=== PATIENT | female | born 1950 | race Caucasian/White ===

== ENCOUNTER 2017-11-05 09:04 | Emergency (ER) | payer OTHER, BC ==
--- NOTE | 2017-11-05 09:22 | PDOC ---
History of Present Illness - General Chief Complaint: Pain Stated Complaint: RIGHT LOWER QUADRANT Time Seen by Provider: 11/05/17 09:22 - History of Present Illness Initial Comments: 11/05/17 09:43 Chief complaint: Nausea and vomiting History of present illness: After eating at a restaurant last night, patient experienced chills and nausea, followed by repetitive vomiting of food, and then clear liquid. Last episode of vomiting was last night. Nausea has resolved. She initially had upper abdominal pain, but this has resolved as well. However, upon presentation to urgent care center today, she was examined, and the examining physician elicited significant right lower quadrant tenderness to palpation. The patient had been unaware of pain in this area before examination. Additional history reveals that the patient attended a wedding on Sunday night, and multiple other attendees developed gastrointestinal illness. Review of systems: Denies fever, recent URI symptoms, sore throat, cough, chest pain, shortness of breath, hematemesis, melena, bloody stool, vaginal bleeding or discharge, urinary tract symptoms. She denies abdominal pain unless vigorously palpated. Remainder of systems reviewed and found to be negative Past medical history: "Colitis" many years ago, seems to have resolved. Peptic ulcer disease, also many years ago, treated with "antibiotic cocktail" without further sequelae. No GI bleeding at the time. High blood pressure. Elevated cholesterol. Takes medication for these. Total abdominal hysterectomy for fibroids, no other abdominal surgeries. Multiple orthopedic surgeries knees and right wrist. Family history: Father of presumed MS at age 58, brother had MS at age 58, another brother with "tachycardia". Mother with ALS. No diabetes. No CVAs or other neurologic diseases. Social history: Patient is employed in healthcare finance, no smoking, excessive alcohol, or nonprescription drugs. Fully active and without disability Physical exam: Alert and oriented well-developed well-nourished no acute distress cheerful and cooperative Afebrile, vital signs normal No pallor or icterus. PERRLA, fundi benign, ENT clear Neck supple without bruit mass or nodes Lungs clear with full breath sounds throughout bilaterally CV regular without murmur rub or gallop pulses full and symmetric no JVD or edema Abdomen nondistended. Bowel sounds present and normal in character. Soft without mass or organomegaly. There is localized tenderness to palpation in the right lower quadrant. Tenderness is only elicited with deep palpation and there is involuntary guarding but no rebound. Extremities no CCE Skin clear, no rash, adequate turgor and wet mucous membranes Neurological intact gait stable and unimpaired Impression: Patient with likely viral gastroenteritis, appears improving now, but examination is significant for localized tenderness at McBurney's point with significant guarding upon deep palpation. Possible appendicitis. Plan: CBC chemistries and urinalysis. CT with contrast to visualize the appendix. IV fluids and antiemetics do not appear to be necessary of present 11/05/17 09:51 Past History - Past Medical History Allergies/Adverse Reactions: Allergies Allergy/AdvReac Type Severity Reaction Status Date / Time Penicillins Allergy Severe Difficulty Verified 11/05/17 09:18 Breathing Home Medications: Ambulatory Orders Atenolol [Tenormin -] 25 mg PO DAILY 11/05/17 Fenofibrate 160 mg PO DAILY 11/05/17 Hctz 25Mg/Triamterene [Dyazide 25/37.5 -] 0.5 cap PO HS 11/05/17 Lisinopril 20 mg PO DAILY 11/05/17 Omeprazole 40 mg PO DAILY 11/05/17 ED Treatment Course - LABORATORY CBC & Chemistry Diagram: 11/05/17 09:48 11/05/17 09:48 Medical Decision Making - Medical Decision Making 11/05/17 12:27 Labs show only a slightly low potassium. Supplementation was administered IV and the patient was instructed to increase potassium-rich foods in the diet and have her potassium rechecked in 1 week by her primary physician CT showed no evidence of serious intra-abdominal disease. Appendix was normal. There was a small nodule on the left adrenal, and as suggested by the radiologist, the patient was told to repeat imaging studies in 2-3 months to make sure there is no growth or change. She understands and agrees. Fully ambulatory in no significant pain or other distress upon discharge to follow-up as recommended *DC/Admit/Observation/Transfer Diagnosis at time of Disposition: Viral gastroenteritis - Discharge Dispostion Disposition: HOME Condition at time of disposition: Improved Admit: No - Referrals - Patient Instructions Printed Discharge Instructions: DI for Viral Gastroenteritis -- Adult Additional Instructions: Potassium was slightly low. Eat foods rich in potassium to buildup near stocks and heavier potassium rechecked by her primary physician in one week. CT scan showed no evidence of serious intra-abdominal disease. There was a small nodule directed that is most likely a noncancerous growth on the adrenal gland. However, to be certain the radiologist has suggested that you repeat radiological imaging in approximately 3 months to make sure it is not growing. Show CT scan report to your primary physician and have him arrange for appropriate follow-up. - Post Discharge Activity Forms/Work/School Notes: Back to Work
[2017-11-05 09:41] LABS: URINE APPEARANCE Clear; URINE BILIRUBIN 2+ (NEGATIVE); URINE GLUCOSE (UA) Negative (NEGATIVE); URINE KETONE Trace (NEGATIVE); URINE NITRITE Negative (NEGATIVE); URINE UROBILINOGEN 0.2 (0.2-1.0)
[2017-11-05 09:42] LABS: URINE BLOOD Trace-lysed (NEGATIVE); URINE COLOR YELLOW; URINE PROTEIN 3+ (NEGATIVE)
[2017-11-05 09:44] VITALS: BP 129/63; PULSE 65; TEMP 98.6; BMI 23.1
[2017-11-05] MEDS ORDERED: SODIUM CHLORIDE 0.9% 1000 ML INFUS.BAG IV ONE (10:04)
[2017-11-05 10:05] LABS: EOS % 0.3 % (0-4.5); HEMATOCRIT 41.2 % (32.4-45.2); HEMOGLOBIN 13.7 GM/dl (10.7-15.3); LYMPH % 5.8 % (8-40); MCHC 33.3 g/dl (32.0-36.0); MEAN CELL VOLUME 90.1 fl (80-96); MEAN PLT VOLUME 8.3 fl (7.5-11.1); MONO % 2.9 % (3.8-10.2); PLATELET COUNT 229 K/MM3 (134-434); RBC 4.57 M/mm3 (3.60-5.2); RDW 12.7 % (11.6-15.6); WHITE BLOOD COUNT 6.9 K/mm3 (4.0-10.8)
[2017-11-05 10:18] LABS: ALK PHOS 43 U/L (32-92); ANION GAP 8 (8-16); BILIRUBIN,TOTAL 0.8 mg/dl (0.2-1.0); BLOOD UREA NITROGEN 18 mg/dl (7-18); CALCIUM 9.4 mg/dl (8.4-10.2); CHLORIDE 102 mmol/L (98-107); CO2 26 mmol/L (22-28); GLUCOSE,RANDOM 94 mg/dl (74-106); LIPASE 20 U/L (22-51); POTASSIUM 3.3 mmol/L (3.5-5.1); SGOT/AST 26 U/L (10-42); SGPT/ALT 15 U/L (10-40); SODIUM 136 mmol/L (136-145); TOT PROT 6.3 g/dl (6.4-8.3)
[2017-11-05] MEDS ORDERED: KCL 10 MEQ IVPB 10 MEQ/100 ML INFUS.BAG IVPB SCH (10:45)
[2017-11-05] MEDS ORDERED: KCL 10 MEQ IVPB 10 MEQ/100 ML INFUS.BAG IVPB ONE (10:45)
[2017-11-05 11:18] LABS: TROPONIN I (DFP) < 0.03 ng/ml (0.03-0.50)
[2017-11-05 14:06] LABS: URINE BACTERIA FEW /hpf (NEGATIVE); URINE RBC 0-2 /hpf (0-3)
== END 2017-11-05 12:55 | disposition home or self-care (01) ==
LOC: FER 09:04
PROC: 3E0337Z Introduction of Electrolytic and Water Balance Substance into Peripheral Vein, Percutaneous Approach (ICD-10-PCS; principal; 2017-11-05)
PROC: 3E033GC Introduction of Other Therapeutic Substance into Peripheral Vein, Percutaneous Approach (ICD-10-PCS; 2017-11-05)
DX: A08.4 Viral intestinal infection, unspecified (principal)
CPT/HCPCS: 36415; 74177-TC; 80053; 81003; 81015; 82550; 83690; 84484; 85025; 87086; 96365; 99282-25

== ENCOUNTER 2023-11-27 11:59 | Emergency (ER) | payer OTHER, BC ==
[2023-11-27 12:07] VITALS: BP 160/81; PULSE 63; RESP 16; TEMP 98.5; BMI 23.3
[2023-11-27] MEDS ORDERED: METOCLOPRAMIDE HCL INJECTION 10 MG/2 ML VIAL IVPUSH ONE (12:36)
[2023-11-27] MEDS ORDERED: ACETAMINOPHEN 500 MG TABLET (FP) PO ONE (12:37)
[2023-11-27] MEDS ORDERED: LACTATED RINGERS SOLUTION 1000 ML INFUS.BAG IV ONE (12:37)
[2023-11-27] MEDS ORDERED: ACETAMINOPHEN 325 MG TABLET (FP) ONE (13:12)
[2023-11-27 13:46] LABS: EPI CELLS 2 /uL (0-25.1); HYALINE CASTS 0 /uL (0-3.1); URINE APPEARANCE CLEAR; URINE BACTERIA 2 /uL (0-1359); URINE BILIRUBIN NEGATIVE (NEGATIVE); URINE COLOR YELLOW; URINE GLUCOSE (UA) NEGATIVE (NEGATIVE); URINE KETONE NEGATIVE (NEGATIVE); URINE LEUK ESTERASE 1+ (NEGATIVE); URINE NITRITE NEGATIVE (NEGATIVE); URINE PROTEIN NEGATIVE (NEGATIVE); URINE RBC 27 /uL (0-23.9); URINE UROBILINOGEN 0.2 mg/dL (0.2-1.0); URINE WBC 18 /uL (0-25.8)
== END 2023-11-27 15:34 | disposition home or self-care (01) ==
LOC: JER 11:59
DX: S00.12XA Contusion of left eyelid and periocular area, initial encounter (principal); W01.198A Fall on same level from slipping, tripping and stumbling with subsequent striking against other object, initial encounter; Y93.69 Activity, other involving other sports and athletics played as a team or group; Y92.9 Unspecified place or not applicable
CPT/HCPCS: 70450-TC; 70486-TC; 73110-TC-LT-FY; 73130-TC-LT-FY; 81003; 93005; 93010; 99285-25